=== PATIENT | female | born 1975 | race Caucasian/White ===

== ENCOUNTER 2016-08-24 16:12 | Emergency (ER) | payer MEDICAID ==
[~2016-08-24] VITALS: Ht 160 cm; Wt 82.0 kg
[~2016-08-24 16:12] MED LIST: DENIES MEDS
[2016-08-24 16:30] VITALS: Ht 160 cm; Wt 82.0 kg
[2016-08-24] MEDS ORDERED: AZIT250T94 PO (17:18)
[2016-08-24] MEDS ORDERED: PSEU120T51 PO (17:19)
[2016-08-24] MEDS ORDERED: D-ME473S18 PO (17:19)
[2016-08-24] MEDS ORDERED: TYL500 PO (17:19)
[2016-08-24] MEDS ORDERED: ALBU8.5H3 INH (17:19)
--- NOTE | 2016-08-24 17:25 | ERD ---
ER Documentation Chief Complaint Date/Time DATE: 08/24/16 TIME: 17:[address], congestion, CARLOS, cough X 4 days, pt has asthma. HPI This is a 40-year-old female presents to the ER stating she's had a cough for the last 3 days. Cough is dry, worse at night. She is also complaining of nasal congestion, headache, body pain. Her daughter sick with similar symptoms. Patient's past month history of asthma and has not had her inhaler because she ran out. She denies any chest pain or any shortness of breath at this time. ROS 12 point review of systems was done, all negative except per HPI. Medications Home Meds Active Scripts Pseudoephedrine Hcl (Sudafed 12 Hour) 120 Mg Tablet.sa, 120 MG PO BID for 3 Days Prov:JAYNE HAWKINS 08/24/16 Acetaminophen* (Tylenol*) 500 Mg Tab, 500 MG PO Q4H Y for MILD PAIN LEVEL 1-3 for 3 Days, TAB Prov:JAYNE HAWKINS 08/24/16 Dextromethorphan Hb-Promethazine Hcl (Promethazine DM Syrup) 473 Ml Syrup, 10 ML PO Q6H Y for COUGH, #4 OZ Prov:JAYNE HAWKINS 08/24/16 Albuterol Sulfate* (Proair HFA*) 8.5 Gm Hfa.aer.ad, 2 PUFF INH Q4, #1 INHALER Prov:JAYNE HAWKINS 08/24/16 Azithromycin* (Zithromax*) 250 Mg Tablet, 250 MG PO .ZPACK DIRECTED, #6 TAB TAKE 500 MG (2 TABS) THE FIRST DAY THEN 250 MG (1 TAB) DAYS 2-5 Prov:JAYNE HAWKINS 08/24/16 Reported Medications [Denies Meds] No Conflict Check 04/25/11 Allergies Allergies: Coded Allergies: No Known Drug Allergies (Verified Allergy, Mild, 04/18/13) PMhx/Soc History of Surgery: Yes () Anesthesia Reaction: No Hx Neurological Disorder: No Hx Respiratory Disorders: Yes (asthma) Hx Cardiac Disorders: No Hx Psychiatric Problems: No Hx Miscellaneous Medical Probl: No Hx Alcohol Use: No Hx Substance Use: No Hx Tobacco Use: No Physical Exam Vitals Vital Signs Date Time Temp Pulse Resp B/P Pulse Ox O2 Delivery O2 Flow Rate FiO2 08/24/16 16:30 99.5 103 18 137/92 98 Physical Exam GENERAL: The patient is well-developed, well-nourished, in no acute distress. NECK: Cervical spine is non tender with no step off. Supple, no nuchal rigidity HEENT: Atraumatic. Pupils equal, round and reactive to light. Extraocular muscles are grossly intact. Conjunctivae pink, no discharge. Bilateral tympanic membranes are clear with no evidence of erythema, effusion or dulling of the light reflex. Tonsilar erythema with no exudates or uvular deviation. Clear rhinorrhea. RESPIRATORY: Clear to auscultation bilaterally. There are no rales, wheezes or rhonchi. HEART: Regular rate and rhythm. No murmurs, clicks, rubs or gallops. EXTREMITIES: No clubbing or cyanosis. Full range of motion. Grossly neurovascularly intact. NEUROLOGIC: Alert and oriented. Cranial nerves II through XII are intact. SKIN: There is no rash. The skin is warm and dry. Procedures/MDM Differential diagnosis includes but is not limited to; Viral URI, allergic rhinitis, bronchitis, pertussis,pneumonia. Patient likely has a upper respiratory infection. Because patient has asthma she'll be treated with azithromycin. Patient will also be sent home with an albuterol inhaler and with Tylenol, icing, Sudafed for her other symptoms Clinical suspicion for pneumonia is low as patient appears well, is not hypoxic or in any respiratory distress. Additionally, patients physical examination is benign. Plan was discussed with patient they understand and agree. Patient needs to follow up with PCP in 1-2 days or return to ER sooner if symptoms worsen. Departure Diagnosis: Primary Impression: Upper respiratory infection Condition: Stable Patient Instructions: Preventing Common Respiratory Infections Additional Instructions: Llame al doctor MAANA y yvonne jennifer KEIRY PARA DENTRO DE 1-2 VELIZ.Dgale a la secretaria que nosotros le instruimos hacer esta keiry.Avise o llame si long condicin se empeora antes de la keiry. Regresa aqui si peor o no mejor. JAYNE HAWKINS Aug 24, 2016 17:25
== END 2016-08-24 17:22 | disposition home or self-care (01) ==
LOC: E/R 16:12
DX: J06.9 Acute upper respiratory infection, unspecified (principal); J45.909 Unspecified asthma, uncomplicated
CPT/HCPCS: 99284

== ENCOUNTER 2017-01-30 06:43 | Emergency (ER) | payer MEDICAID ==
[~2017-01-30] VITALS: Ht 157.5 cm; Wt 87.0 kg
[~2017-01-30 06:43] MED LIST changes: +ALBU8.5H3 INH; +AZIT250T94 PO; +D-ME473S18 PO; +PSEU120T51 PO; +TYL500 PO
[2017-01-30 06:47] VITALS: Ht 157.5 cm; Wt 87.0 kg
[2017-01-30 07:20] LABS: URINE BLOOD (Dip) POC Negative (NEGATIVE)
--- NOTE | 2017-01-30 07:23 | ERD ---
ER Documentation Chief Complaint Date/Time DATE: 01/30/17 TIME: 07:21 Chief Complaint Complains of headache x 4 days HPI 41-year-old female with no known prior history medical problems comes emergency department with a headache, dizziness that has been intermittent for 3-4 days. Patient states that she felt lightheaded, associated with a right temporal headache that has been on and off, moderate pain. She states that she has had this headache multiple times in the past however there is no associated dizziness with it. She has not tried anything for the pain so far. There is no history of trauma, loss of consciousness, blurry vision, paresthesias or weakness. ROS All systems reviewed and are negative except as per history of present illness. Medications Home Meds Active Scripts Ibuprofen* (Motrin*) 600 Mg Tab, 600 MG PO Q6, #30 TAB Prov:CHAVEZ JACOBO PA-C 01/30/17 Acetaminophen* (Tylophen*) 500 Mg Capsule, 1 CAP PO Q6H Y for PAIN AND OR ELEVATED TEMP, #20 CAP Prov:CHAVEZ JACOBO PA-C 01/30/17 Pseudoephedrine Hcl (Sudafed 12 Hour) 120 Mg Tablet.sa, 120 MG PO BID for 3 Days Prov:JAYNE HAWKINS 08/24/16 Acetaminophen* (Tylenol*) 500 Mg Tab, 500 MG PO Q4H Y for MILD PAIN LEVEL 1-3 for 3 Days, TAB Prov:JAYNE HAWKINS 08/24/16 Dextromethorphan Hb-Promethazine Hcl (Promethazine DM Syrup) 473 Ml Syrup, 10 ML PO Q6H Y for COUGH, #4 OZ Prov:JAYNE HAWKINS 08/24/16 Albuterol Sulfate* (Proair HFA*) 8.5 Gm Hfa.aer.ad, 2 PUFF INH Q4, #1 INHALER Prov:JAYNE HAWKINS 08/24/16 Azithromycin* (Zithromax*) 250 Mg Tablet, 250 MG PO .ZPACK DIRECTED, #6 TAB TAKE 500 MG (2 TABS) THE FIRST DAY THEN 250 MG (1 TAB) DAYS 2-5 Prov:JAYNE HAWKINS 08/24/16 Reported Medications [Denies Meds] No Conflict Check 04/25/11 Allergies Allergies: Coded Allergies: No Known Drug Allergies (Verified Allergy, Mild, 04/18/13) PMhx/Soc History of Surgery: Yes () Anesthesia Reaction: No Hx Neurological Disorder: No Hx Respiratory Disorders: Yes (asthma) Hx Cardiac Disorders: No Hx Psychiatric Problems: No Hx Miscellaneous Medical Probl: No Hx Alcohol Use: No Hx Substance Use: No Hx Tobacco Use: No Smoking Status: Never smoker Physical Exam Vitals Vital Signs Date Time Temp Pulse Resp B/P Pulse Ox O2 Delivery O2 Flow Rate FiO2 01/30/17 06:47 97.0 66 20 114/75 100 Physical Exam General: Well-developed, well-nourished. The patient appears in no acute distress. HEENT: Head is normocephalic, atraumatic. No scleral icterus. Pupils are equal , round, and reactive. Oral mucous membranes are moist. No pharyngeal erythema. Neck: Supple. Nontender. Lungs: Clear to auscultation. Normal air movement. Heart: Regular rate and rhythm. S1 and S2 are normal. No murmurs, gallops, or rubs. Abdomen: Soft, nontender, nondistended. Bowel sounds are normoactive. Extremities: No clubbing or cyanosis. Normal pulses. Moving extremities x 4. No weakness. Neurologic: Alert and oriented 3. No focal deficits. Cranial nerves II 12 grossly intact, speech and gait normal. Strength lower extremities 5 out of 5, strength upper extremities 5 out of 5. Skin: Normal turgor. No rash or lesions. Results 24 hrs Laboratory Tests Test 01/30/17 07:18 01/30/17 07:24 Bedside Glucose 114mg/dL Bedside Urine pH (LAB) 5.5 Bedside Urine Protein (LAB) Negative Bedside Urine Glucose (UA) Negative Bedside Urine Ketones (LAB) Negative Bedside Urine Blood Negative Bedside Urine Nitrite (LAB) Negative Bedside Urine Leukocyte Esterase (L Negative Current Medications Medications (Trade) Dose Ordered Sig/Hasmukh Route PRN Reason Start Time Stop Time Status Last Admin Dose Admin Acetaminophen (Tylenol Tab) 650 mg ONCE ONCE PO 01/30/17 07:30 01/30/17 07:31 DC 01/30/17 07:27 DIAGNOSTIC IMAGING REPORT Patient: SHAMAR MATTSON : 1975 Age: 41 Sex: F MR #: [id number] DOS: 01/30/17 0705 Ordering MD: CHAVEZ JACOBO PA-C Location: [facility] Room/Bed: PROCEDURE: CT Brain without contrast. CLINICAL INDICATION: Headache and dizziness for 2 days. TECHNIQUE: A CT of the brain without contrast was performed utilizing axial sections from the skull base through the vertex. The patient was scanned without intravenous contrast enhancement. Sagittal and coronal reformatted images were obtained using the data from the axial images. Total exam DLP is 630.20 mGy-cm. CTDIvol is 44.03 mGy. One or more of the following dose reduction techniques were used: Automated exposure control, adjustment of the mA and/or kV according to patient size, use of iterative reconstruction technique. COMPARISON: None available FINDINGS: There is normal valle-white matter differentiation. The ventricles and cisterns are normal. There is no intracranial hemorrhage or space-occupying lesion. There is no skull fracture or lytic lesion. IMPRESSION: 1. Normal noncontrast CT scan of the brain. 2. No intracranial hemorrhage. RPTAT: QQ .Jerry Schmid MD, MD Date Time Electronically viewed and signed by .Jerry Schmid MD, MD on 01/30/2017 07:49 .R/ CC: CHAVEZ JACOBO PA-C 12-lead EKG(interpreted by supervising physician): Dr. Sorto Rate/Rhythm: Normal Sinus Rhythm, rate of 59 QRS, ST, T-waves: No changes consistent w/ acute ischemia, no intervals, no dysrhythmias, no ectopy Impression: No evidence of ischemia or arrhythmia Procedures/MDM Medical decision making: This is a 49-year-old female who comes in with headache that is bitemporal associated with lightheadedness for the past 2 days. Patient states that this is not a headache, and it has been intermittent with dizziness. She had an EKG shows normal sinus rhythm, normal Accu-Chek and urine was negative for infection or . CT of the head was also performed, there is no evidence of acute intracranial process, there is no mass- effect, no midline shift or intracranial hemorrhage. Patient's neurologic examination is normal at this time, she was given Tylenol reports that she is feeling better at this time. I suspect this is a migraine versus tension headache, and headache symptoms appear to be benign. No accelerated headache, this is not the worst headache of her life, and headache waxes and wanes. There are no signs concerning for meningitis, encephalitis, subarachnoid hemorrhage, temporal arteritis, TIA, stroke. Departure Diagnosis: Primary Impression: Headache Condition: Good CHAVEZ JACOBO PA-C Jan 30, 2017 07:23
[2017-01-30] MEDS ORDERED: ACETAMINOPHEN 325 MG TAB PO ONE (07:30)
--- NOTE | 2017-01-30 07:49 | RADRPT ---
PROCEDURE: CT Brain without contrast. CLINICAL INDICATION: Headache and dizziness for 2 days. TECHNIQUE: A CT of the brain without contrast was performed utilizing axial sections from the skul l base through the vertex. The patient was scanned without intravenous contrast enhancement. Sagitta l and coronal reformatted images were obtained using the data from the axial images. Total exam DLP is 630.20 mGy-cm. CTDIvol is 44.03 mGy. One or more of the following dose reduction techniques we re used: Automated exposure control, adjustment of the mA and/or kV according to patient size, use o f iterative reconstruction technique. COMPARISON: None available FINDINGS: There is normal valle-white matter differentiation. The ventricles and cisterns are normal. There is no intracranial hemorrhage or space-occupying lesion. There is no skull fracture or lytic lesion. IMPRESSION: 1. Normal noncontrast CT scan of the brain. 2. No intracranial hemorrhage. RPTAT: QQ .Jerry Schmid MD, MD Date Time Electronically viewed and signed by .Jerry Schmid MD, on 01/30/2017 07:49 .R/
[2017-01-30] MEDS ORDERED: ACET500C5 PO (07:53)
[2017-01-30] MEDS ORDERED: IBUP-1542 PO (07:53)
== END 2017-01-30 08:03 | disposition home or self-care (01) ==
LOC: FTE 06:43
DX: R51 Headache (principal); J45.909 Unspecified asthma, uncomplicated; R42 Dizziness and giddiness
CPT/HCPCS: 70450; 81003; 82962; 93005; Z7502; Z7610

== ENCOUNTER 2017-03-20 17:43 | Emergency (ER) | payer MEDICAID ==
[~2017-03-20] VITALS: Ht 162.6 cm; Wt 86.0 kg
[~2017-03-20 17:43] MED LIST changes: +ACET500C5 PO; +IBUP-1542 PO
[2017-03-20 17:49] VITALS: Ht 162.6 cm; Wt 86.0 kg
--- NOTE | 2017-03-20 18:08 | ERA ---
ER Documentation Chief Complaint Date/Time DATE: 03/20/17 TIME: 18:08 Chief Complaint PT with AP, vomiting, diarrhea, X 4 days. HPI The patient is a 41-year-old female, presenting with vague diffuse abdominal discomfort, diarrhea, vomiting for a week. She denies fever, hematochezia, hematemesis, dysuria. He denies fever, chills, neck pain, chest pain, dyspnea. She does not smoke or drink Past medical history: None Past surgical history: ROS All systems reviewed and are negative except as per history of present illness. Medications Home Meds Active Scripts Loperamide Hcl* (Imodium*) 2 Mg Capsule, 2 MG PO .AFTER EA LOOSE BM Y for DIARRHEA, #10 TAB Prov:LUCI GALINDO MD 03/20/17 Ondansetron (Ondansetron Odt) 4 Mg Tab.rapdis, 4 MG PO Q6H Y for NAUSEA AND/OR VOMITING, #10 TAB Prov:LUCI GALINDO MD 03/20/17 Ibuprofen* (Motrin*) 600 Mg Tab, 600 MG PO Q6, #30 TAB Prov:LUCI GALINDO MD 03/20/17 Ibuprofen* (Motrin*) 600 Mg Tab, 600 MG PO Q6, #30 TAB Prov:CHAVEZ JACOBO PA-C 01/30/17 Acetaminophen* (Tylophen*) 500 Mg Capsule, 1 CAP PO Q6H Y for PAIN AND OR ELEVATED TEMP, #20 CAP Prov:CHAVEZ JACOBO PA-C 01/30/17 Pseudoephedrine Hcl (Sudafed 12 Hour) 120 Mg Tablet.sa, 120 MG PO BID for 3 Days Prov:JAYNE HAWKINS 08/24/16 Acetaminophen* (Tylenol*) 500 Mg Tab, 500 MG PO Q4H Y for MILD PAIN LEVEL 1-3 for 3 Days, TAB Prov:JAYNE HAWKINS 08/24/16 Dextromethorphan Hb-Promethazine Hcl (Promethazine DM Syrup) 473 Ml Syrup, 10 ML PO Q6H Y for COUGH, #4 OZ Prov:JAYNE HAWKINS 08/24/16 Albuterol Sulfate* (Proair HFA*) 8.5 Gm Hfa.aer.ad, 2 PUFF INH Q4, #1 INHALER Prov:JAYNE HAWKINS 08/24/16 Azithromycin* (Zithromax*) 250 Mg Tablet, 250 MG PO .ZPACK DIRECTED, #6 TAB TAKE 500 MG (2 TABS) THE FIRST DAY THEN 250 MG (1 TAB) DAYS 2-5 Prov:JAYNE HAWKINS 08/24/16 Reported Medications [Denies Meds] No Conflict Check 04/25/11 Allergies Allergies: Coded Allergies: No Known Drug Allergies (Verified Allergy, Mild, 03/20/17) PMhx/Soc History of Surgery: Yes () Anesthesia Reaction: No Hx Neurological Disorder: No Hx Respiratory Disorders: Yes (asthma) Hx Cardiac Disorders: No Hx Psychiatric Problems: No Hx Miscellaneous Medical Probl: No Hx Alcohol Use: No Hx Substance Use: No Hx Tobacco Use: No Physical Exam Vitals Vital Signs Date Time Temp Pulse Resp B/P Pulse Ox O2 Delivery O2 Flow Rate FiO2 03/20/17 20:32 98.3 66 16 112/68 99 Room Air 03/20/17 17:49 98.9 78 16 167/89 97 Physical Exam Const: No acute distress. Head: Atraumatic. Eyes: Normal Conjunctiva. ENT: Normal External Ears, Nose and Mouth. Neck: Full range of motion. No meningismus. Resp: Clear to auscultation bilaterally. Cardio: Regular rate and rhythm. Abd: Soft, non distended, normal bowel sounds, non tender. Skin: No petechiae or rashes. Back: No midline or flank tenderness. Ext: No cyanosis, or edema. Neur: Awake and alert. No focal deficit Psych: Normal Mood and Affect. Result Diagram: 03/20/17182403/20/17 182 Results 24 hrs Laboratory Tests Test 03/20/17 18:25 03/20/17 19:00 White Blood Count 8.810^3/ul Red Blood Count 4.1810^6/ul Hemoglobin 12.6g/dl Hematocrit 37.0% Mean Corpuscular Volume 88.5fl Mean Corpuscular Hemoglobin 30.1pg Mean Corpuscular Hemoglobin Concent 34.1g/dl Red Cell Distribution Width 12.7% Platelet Count 46842^3/UL Mean Platelet Volume 9.9fl Neutrophils % 56.9% Lymphocytes % 33.9% Monocytes % 4.7% Eosinophils % 3.8% Basophils % 0.5% Nucleated Red Blood Cells % 0.0/100WBC Neutrophils # (Manual) 5.010^3/ul Lymphocytes # 3.010^3/ul Monocytes # 0.410^3/ul Eosinophils # 0.310^3/ul Basophils # 0.010^3/ul Nucleated Red Blood Cells # 0.010^3/ul Sodium Level 139mmol/L Potassium Level 3.3mmol/L Chloride Level 106mmol/L Carbon Dioxide Level 25mmol/L Anion Gap 11 Blood Urea Nitrogen 11mg/dl Creatinine 0.69mg/dl Glucose Level 88mg/dl Calcium Level 8.6mg/dl Total Bilirubin 0.0mg/dl Direct Bilirubin 0.00mg/dl Indirect Bilirubin 0.0mg/dl Aspartate Amino Transf (AST/SGOT) 75IU/L Alanine Aminotransferase (ALT/SGPT) 156IU/L Alkaline Phosphatase 78IU/L Total Protein 7.4g/dl Albumin 4.2g/dl Globulin 3.20g/dl Albumin/Globulin Ratio 1.31 Lipase 58U/L Urine Color STRAW Urine Clarity CLEAR Urine pH 6.0 Urine Specific [place] 1.004 Urine Ketones NEGATIVEmg/dL Urine Nitrite NEGATIVEmg/dL Urine Bilirubin NEGATIVEmg/dL Urine Urobilinogen NEGATIVEmg/dL Urine Leukocyte Esterase NEGATIVELeu/ul Urine Microscopic RBC 0/HPF Urine Microscopic WBC 0/HPF Urine Hemoglobin 1+mg/dL Urine Glucose NEGATIVEmg/dL Urine Total Protein NEGATIVEmg/dl Current Medications Medications (Trade) Dose Ordered Sig/Hasmukh Route PRN Reason Start Time Stop Time Status Last Admin Dose Admin Acetaminophen/ Hydrocodone Bitart ([place] (10325)) 1 tab ONCE ONCE PO 03/20/17 18:30 03/20/17 18:31 DC Ondansetron HCl (Zofran Odt) 4 mg ONCE STAT ODT 03/20/17 18:19 03/20/17 18:20 DC 03/20/17 19:04 Potassium Chloride (Klor-Con 20) 20 meq ONCE STAT PO 03/20/17 20:20 03/20/17 20:22 DC 03/20/17 20:30 Procedures/[place] [id number] Radiology Main Line: [phone] DIAGNOSTIC IMAGING REPORT Patient: SHAMAR MATTSON : 1975 Age: 41 Sex: F MR #: [id number] DOS: 03/20/179 Ordering MD: LUCI GALINDO MD Location: [facility] Room/Bed: PROCEDURE: US Abdomen (right upper quadrant). CLINICAL INDICATION: Abdominal pain. TECHNIQUE: Multiple real-time longitudinal and transverse images of the right upper quadrant of the abdomen were acquired utilizing a curved array transducer. Images were reviewed on a high-resolution PACS workstation. COMPARISON: None FINDINGS: The liver is normal in size and echogenicity without focal mass or intrahepatic biliary dilatation. The gallbladder is normal. There is no pericholecystic fluid or gallbladder wall thickening or gallstones. The sonographic Warner sign is negative. No intra or extrahepatic biliary dilatation is seen. The common bile duct measures 3.7 mm in maximal dimension. The pancreas is not well visualized. No free fluid is identified. The right kidney measures 10.8 cm in length. There is normal echogenicity within the right kidney. There is no perinephric fluid collection. No hydronephrosis, mass, or calculus is seen. IMPRESSION: 1. The pancreas is not well visualized. 2. Otherwise unremarkable right upper quadrant ultrasound. RPTAT: QQ .Shelby Chaney MD, Date Time Electronically viewed and signed by .Shelby Chaney MD, MD on 03/20/2017 19: 38 .N/ CC: LUCI GALINDO MD MEDICAL MAKING DECISION: The patient is a 41-year-old female, presenting with acute vomiting diarrhea of unclear etiology, acute hypokalemia. She was treated with potassium chloride 20 mEq p.o. for acute hypokalemia, [place] 10 mg p.o. for pain, Zofran ODT for nausea with good response The differential diagnoses considered include but are not limited to cholelithiasis, cholecystitis, cystitis, pancreatitis, hepatitis, gastritis, peptic ulcer disease, gastric ulcer, appendicitis, diverticulitis, cholangitis, choledocholithiasis, partial small bowel obstruction. Departure Diagnosis: Primary Impression: Vomiting and diarrhea Additional Impressions: Abdominal pain Hypokalemia Transaminitis Condition: Good Comments I discussed the findings with the patient. I advised the patient to follow-up with the primary physician in about 1-2 days, sooner if needed and return if any concern. The patient's blood pressure was elevated (>120/80) but appears stable without evidence of hypertension emergency or urgency. The patient was counseled about the risks of hypertension and urged to pursue outpatient monitoring and therapy within a week with their primary care physician. She was discharged with Brian Pizano, Imodium LUCI GALINDO MD Mar 20, 2017 18:08
[2017-03-20] MEDS ORDERED: ONDANSETRON (ODT) 4 MG TAB ODT STA (18:19)
[2017-03-20] MEDS ORDERED: HYDROCODONE/APAP (10/325) TAB PO ONE (18:30)
--- NOTE | 2017-03-20 19:39 | RADRPT ---
PROCEDURE: US Abdomen (right upper quadrant). CLINICAL INDICATION: Abdominal pain. TECHNIQUE: Multiple real-time longitudinal and transverse images of the right upper quadrant of th e abdomen were acquired utilizing a curved array transducer. Images were reviewed on a high-resoluti on PACS workstation. COMPARISON: None FINDINGS: The liver is normal in size and echogenicity without focal mass or intrahepatic biliary dilatation. The gallbladder is normal. There is no pericholecystic fluid or gallbladder wall thickening or gal lstones. The sonographic Warner sign is negative. No intra or extrahepatic biliary dilatation is see n. The common bile duct measures 3.7 mm in maximal dimension. The pancreas is not well visualized. No free fluid is identified. The right kidney measures 10.8 cm in length. There is normal echogenicity within the right kidney. There is no perinephric fluid collection. No hydronephrosis, mass, or calculus is seen. IMPRESSION: 1. The pancreas is not well visualized. 2. Otherwise unremarkable right upper quadrant ultrasound. RPTAT: QQ .Shelby Chaney MD, MD Date Time Electronically viewed and signed by .Shelby Chaney MD, MD on 03/20/2017 19:38 .N/
[2017-03-20 19:51] LABS: BASOPHILS % 0.5 % (0.0-2.0); EOSINOPHILS # 0.3 10^3/ul (0.0-0.5); EOSINOPHILS % 3.8 % (0.0-7.0); HEMOGLOBIN 12.6 g/dl (12.0-16.0); LYMPHOCYTES % 33.9 % (15.0-51.0); MEAN CORPUSCULAR HEMOGLOBIN 30.1 pg (29.0-33.0); MEAN CORPUSCULAR HGB CONC 34.1 g/dl (32.0-37.0); MEAN CORPUSCULAR VOLUME 88.5 fl (82.0-101.0); MEAN PLATELET VOLUME 9.9 fl (7.4-10.4); MONOCYTE # 0.4 10^3/ul (0.3-0.9); MONOCYTES % 4.7 % (0.0-11.0); NEUTROPHILS % 56.9 % (39.0-77.0); PLATELET COUNT 246 10^3/UL (140-415); RED BLOOD COUNT 4.18 10^6/ul (4.20-5.40); RED CELL DISTRIBUTION WIDTH 12.7 % (11.5-14.5); WHITE BLOOD COUNT 8.8 10^3/ul (4.8-10.8)
[2017-03-20 19:54] LABS: ADD UMIC YES; UR ASCORBIC ACID NEGATIVE (NEGATIVE); UR BILIRUBIN (Dip) NEGATIVE (NEGATIVE); UR BLOOD (Dip) 1+ mg/dL (NEGATIVE); UR CLARITY CLEAR (CLEAR); UR COLOR STRAW (YELLOW); UR GLUCOSE (Dip) NEGATIVE (NEGATIVE); UR KETONES (Dip) NEGATIVE (NEGATIVE); UR LEUKOCYTE ESTERASE (Dip) NEGATIVE Leu/ul (NEGATIVE); UR NITRITE (Dip) NEGATIVE (NEGATIVE); UR RBC 0 /HPF (0-5); UR SPECIFIC GRAVITY (Dip) 1.004 (1.003-1.030); UR TOTAL PROTEIN (Dip) NEGATIVE (NEGATIVE); UR UROBILINOGEN (Dip) NEGATIVE (NEGATIVE)
[2017-03-20 20:10] LABS: ALBUMIN 4.2 g/dl (3.3-4.9); ALBUMIN/GLOBULIN RATIO 1.31; CALCIUM 8.6 mg/dl (8.4-10.2); CREATININE 0.69 mg/dl (0.44-1.00); POTASSIUM 3.3 mmol/L (3.5-5.1); TOTAL PROTEIN 7.4 g/dl (6.1-8.1)
[2017-03-20] MEDS ORDERED: POTASSIUM CHLORIDE (SR) 20 MEQ TAB PO STA (20:20)
[2017-03-20] MEDS ORDERED: IBUP-1542 PO (20:21)
[2017-03-20] MEDS ORDERED: LOPE2CAP PO (20:21)
[2017-03-20] MEDS ORDERED: ONDA4TAB14 PO (20:21)
[2017-03-20 20:32] VITALS: BP 112/68; PULSE 66; RESP 16; TEMP 98.3
== END 2017-03-20 20:35 | disposition home or self-care (01) ==
LOC: FTE 17:43
DX: R10.84 Generalized abdominal pain (principal); R11.10 Vomiting, unspecified; R19.7 Diarrhea, unspecified; E87.6 Hypokalemia; R74.0 Nonspecific elevation of levels of transaminase and lactic acid dehydrogenase [LDH]; J45.909 Unspecified asthma, uncomplicated
CPT/HCPCS: 36415; 76705; 80053; 81001; 83690; 85025; Z7502; Z7610

== ENCOUNTER 2017-07-16 12:52 | Emergency (ER) | payer MEDICAID, OTHER ==
[~2017-07-16] VITALS: Ht 157.5 cm; Wt 84.7 kg
[~2017-07-16 12:52] MED LIST changes: +LOPE2CAP PO; +ONDA4TAB14 PO
[2017-07-16 12:56] VITALS: Ht 157.5 cm; Wt 84.7 kg
[2017-07-16] MEDS ORDERED: ALBUTEROL 0.083% (NEB) 2.5 MG/3 ML AMP HHN STA (14:06)
[2017-07-16] MEDS ORDERED: IPRATROPIUM (NEB) 0.5 MG/2.5 ML AMP HHN ONE (14:30)
[2017-07-16] MEDS ORDERED: DEXAMETHASONE 10 MG/ML 1 ML INJ IM ONE (14:30)
--- NOTE | 2017-07-16 14:48 | RADRPT ---
PROCEDURE: XR Chest. CLINICAL INDICATION: Shortness of breath and cough. TECHNIQUE: Single frontal chest x-ray. COMPARISON: None. FINDINGS: The lungs are clear. No focal opacification is seen. The cardiomediastinal silhouette is unremarka ble. The osseous structures are unremarkable. IMPRESSION: 1. There is no acute cardiopulmonary process. RPTAT: PP .Kush Griffin MD, MD Date Time Electronically viewed and signed by .Kush Griffin MD, on 07/16/2017 14:48 .B/
[2017-07-16] MEDS ORDERED: MED4DP PO (15:04)
[2017-07-16] MEDS ORDERED: AZIT250T94 PO (15:04)
[2017-07-16] MEDS ORDERED: ALBU8.5H3 INH (15:05)
--- NOTE | 2017-07-16 15:51 | ERD ---
ER Documentation Chief Complaint Chief Complaint complains of a cough x 3 days HPI This is a 41-year-old female presents to the ER with a cough for the last 3 weeks. Patient states that over the last 2 days her cough is gotten worse patient has been experiencing wheezing and shortness of breath. She also developed fevers and sore throat. She does have a past medical history of asthma. She denies any chest pain. ROS 12 point review of systems was done, all negative except per HPI. Medications Home Meds Active Scripts Albuterol Sulfate* (Proair HFA*) 8.5 Gm Hfa.aer.ad, 2 PUFF INH Q4, #1 INHALER Prov:JAYNE HAWKINS 07/16/17 Methylprednisolone* (Medrol* DOSE PACK) 4 Mg/Dose-Pack Tab.ds.pk, 4 MG PO . DIRECTED for 6 Days, PACKET Prov:JAYNE HAWKINS 07/16/17 Azithromycin* (Zithromax*) 250 Mg Tablet, 250 MG PO .ZPACK DIRECTED, #6 TAB TAKE 500 MG (2 TABS) THE FIRST DAY THEN 250 MG (1 TAB) DAYS 2-5 Prov:JAYNE HAWKINS 07/16/17 Loperamide Hcl* (Imodium*) 2 Mg Capsule, 2 MG PO .AFTER EA LOOSE BM Y for DIARRHEA, #10 TAB Prov:LUCI GALINDO MD 03/20/17 Ondansetron (Ondansetron Odt) 4 Mg Tab.rapdis, 4 MG PO Q6H Y for NAUSEA AND/OR VOMITING, #10 TAB Prov:LUCI GALINDO MD 03/20/17 Ibuprofen* (Motrin*) 600 Mg Tab, 600 MG PO Q6, #30 TAB Prov:LUCI GALINDO MD 03/20/17 Ibuprofen* (Motrin*) 600 Mg Tab, 600 MG PO Q6, #30 TAB Prov:CHAVEZ JACOBO PA-C 01/30/17 Acetaminophen* (Tylophen*) 500 Mg Capsule, 1 CAP PO Q6H Y for PAIN AND OR ELEVATED TEMP, #20 CAP Prov:CHAVEZ JACOBO PA-C 01/30/17 Pseudoephedrine Hcl (Sudafed 12 Hour) 120 Mg Tablet.sa, 120 MG PO BID for 3 Days Prov:JAYNE HAWKINS 08/24/16 Acetaminophen* (Tylenol*) 500 Mg Tab, 500 MG PO Q4H Y for MILD PAIN LEVEL 1-3 for 3 Days, TAB Prov:JAYNE HAWKINS 08/24/16 Dextromethorphan Hb-Promethazine Hcl (Promethazine DM Syrup) 473 Ml Syrup, 10 ML PO Q6H Y for COUGH, #4 OZ Prov:JAYNE HAWKINS 08/24/16 Albuterol Sulfate* (Proair HFA*) 8.5 Gm Hfa.aer.ad, 2 PUFF INH Q4, #1 INHALER Prov:JAYNE HAWKINS 08/24/16 Azithromycin* (Zithromax*) 250 Mg Tablet, 250 MG PO .ZPACK DIRECTED, #6 TAB TAKE 500 MG (2 TABS) THE FIRST DAY THEN 250 MG (1 TAB) DAYS 2-5 Prov:JAYNE HAWKINS 08/24/16 Reported Medications [Denies Meds] No Conflict Check 04/25/11 Allergies Allergies: Coded Allergies: No Known Drug Allergies (Verified Allergy, Mild, 03/20/17) PMhx/Soc History of Surgery: Yes () Anesthesia Reaction: No Hx Neurological Disorder: No Hx Respiratory Disorders: Yes (asthma) Hx Cardiac Disorders: No Hx Psychiatric Problems: No Hx Miscellaneous Medical Probl: No Hx Alcohol Use: No Hx Substance Use: No Hx Tobacco Use: No Smoking Status: Never smoker Physical Exam Vitals Vital Signs Date Time Temp Pulse Resp B/P Pulse Ox O2 Delivery O2 Flow Rate FiO2 07/16/17 14:31 78 26 96 21 07/16/17 12:56 99.1 90 20 159/97 95 Physical Exam GENERAL: The patient is well-developed, well-nourished, in no acute distress. NECK: Cervical spine is non tender with no step off. Supple, no nuchal rigidity HEENT: Atraumatic. Pupils equal, round and reactive to light. Extraocular muscles are grossly intact. Conjunctivae pink, no discharge. Bilateral tympanic membranes are clear with no evidence of erythema, effusion or dulling of the light reflex. Tonsilar erythema with no exudates or uvular deviation. Clear rhinorrhea. RESPIRATORY: expiratory wheezes in all lung romo, no rales rhonchi or crackles HEART: Regular rate and rhythm. No murmurs, clicks, rubs or gallops. EXTREMITIES: No clubbing or cyanosis. Full range of motion. Grossly neurovascularly intact. NEUROLOGIC: Alert and oriented. Cranial nerves II through XII are intact. SKIN: There is no rash. The skin is warm and dry. Results 24 hrs Current Medications Medications (Trade) Dose Ordered Sig/Hasmukh Route PRN Reason Start Time Stop Time Status Last Admin Dose Admin Albuterol (Proventil 0.083% (Neb)) 5 mg ONCE STAT HHN 07/16/17 14:06 07/16/17 14:08 DC 07/16/17 14:30 Dexamethasone (Decadron) 10 mg ONCE ONCE IM 07/16/17 14:30 07/16/17 14:31 DC 07/16/17 14:35 Ipratropium [place] (Atrovent 0.02% (Neb)) 0.5 mg ONCE ONCE HHN 07/16/17 14:30 07/16/17 14:31 DC 07/16/17 14:30 [place] [id number] Radiology Main Line: [phone] DIAGNOSTIC IMAGING REPORT Patient: SHAMAR MATTSON : 1975 Age: 41 Sex: F MR #: [id number] DOS: 07/16/17 0000 Ordering MD: JAYNE HAWKINS. PAErinnC Location: [facility] Room/Bed: PROCEDURE: XR Chest. CLINICAL INDICATION: Shortness of breath and cough. TECHNIQUE: Single frontal chest x-ray. COMPARISON: None. FINDINGS: The lungs are clear. No focal opacification is seen. The cardiomediastinal silhouette is unremarkable. The osseous structures are unremarkable. IMPRESSION: 1. There is no acute cardiopulmonary process. RPTAT: PP .Kush Griffin MD, Date Time Electronically viewed and signed by .Kush Griffin MD, on 07/16/2017 14:48 .B/ CC: JAYNE HAWKINS Procedures/MDM Patient was given a nebulizing treatment in the ER and felt significantly better , her wheezing was improved upon recheck. Differential diagnosis includes but is not limited to; Viral URI, allergic rhinitis, bronchitis, pertussis,pneumonia.Patient will be treated for possible bacterial bronchitis. Clinical suspicion for pneumonia is low as patient appears well, is not hypoxic or in any respiratory distress. Additionally, patients physical examination is benign. Plan was discussed with patient they understand and agree. Patient needs to follow up with PCP in 1-2 days or return to ER sooner if symptoms worsen. Departure Diagnosis: Primary Impression: Bronchitis Condition: Stable Patient Instructions: Bronchitis With Wheezing (Adult) Additional Instructions: Call your primary care doctor TOMORROW for an appointment during the next 1-2 days.See the doctor sooner or return here if your condition worsens before your appointment time. JAYNE HAWKINS Jul 16, 2017 15:51
== END 2017-07-16 15:13 | disposition home or self-care (01) ==
LOC: FTE 12:52
DX: J20.9 Acute bronchitis, unspecified (principal); J45.909 Unspecified asthma, uncomplicated
CPT/HCPCS: 71010; 94664; 96372; J1100; Z7502; Z7610

== ENCOUNTER 2018-02-26 12:44 | Emergency (ER) | END 2018-02-26 17:44 | disposition home or self-care (01) ==

== ENCOUNTER 2018-05-07 12:46 | Emergency (ER) | END 2018-05-07 17:22 | disposition home or self-care (01) ==

== ENCOUNTER 2018-06-26 12:23 | Emergency (ER) | END 2018-06-26 14:51 | disposition home or self-care (01) ==

== ENCOUNTER 2018-08-11 17:53 | Emergency (ER) | payer OTHER ==
[~2018-08-11] VITALS: Ht 165.1 cm; Wt 84.5 kg
[~2018-08-11 17:53] MED LIST changes: -ALBU8.5H3 INH; +ALBU8.5H8 INH; +AZIT250T PO; -AZIT250T94 PO; +CETI10CA PO; +FLUT9.9S NASAL; +GUAI5SYR2 PO; +MED4DP PO; +PHEN-537 PO; +PSEU120T12 PO; -PSEU120T51 PO
[2018-08-11 18:02] VITALS: Ht 165.1 cm; Wt 84.5 kg
[2018-08-11] MEDS ORDERED: ALBUTEROL 0.083% (NEB) 2.5 MG/3 ML AMP NEB STA (20:15)
[2018-08-11] MEDS ORDERED: IPRATROPIUM (NEB) 0.5 MG/2.5 ML AMP NEB STA (20:15)
[2018-08-11] MEDS ORDERED: predniSONE 20 MG TAB PO STA (20:15)
[2018-08-11] MEDS ORDERED: D-ME118S24 PO (21:12)
[2018-08-11] MEDS ORDERED: ALBU18HF INHALATION (21:12)
[2018-08-11] MEDS ORDERED: IBUP-1542 PO (21:13)
--- NOTE | 2018-08-11 21:22 | ERD ---
ER Documentation Chief Complaint Chief Complaint cough/congestion, sob x 3 days HPI 42-year-old female presents for runny nose and cough times 3 days. She states that she has some chest congestion. Cough is noted to be productive of greenish phlegm. Also notes that she has been wheezing. She denies history of asthma. Has not tried any medications at home. No fevers or chills noted. No chest pain or shortness of breath. ROS All systems reviewed and are negative except as per history of present illness. Medications Home Meds Active Scripts Ibuprofen* (Motrin*) 600 Mg Tab, 600 MG PO Q6H PRN for PAIN AND OR ELEVATED TEMP, #30 TAB Prov:XIAOLUCI 08/11/18 Albuterol Sulfate* (Ventolin HFA*) 18 Gm Hfa.aer.ad, 2 PUFF INHALATION Q4H, #1 INHALER Prov:LUCI XIAO 08/11/18 D-Methorphan Hb/P-Epd HCl/Bpm (Qdvyipqjiu-Fgvhjjgqitz-Py Syr) 118 Ml Syrup, 5 ML PO Q4H PRN for COUGH, #1 BOTTLE Prov:LUCI XIAO 08/11/18 Guaifenesin-Dextromethorphan* (Robitussin* DM) 100MG/10MG/5ML Syrup, 10 ML PO Q6H PRN for COUGH for 5 Days, ML Prov:SKIP ARTEAGA PA-C 06/26/18 Fluticasone Propionate (Flonase Allergy Relief) 9.9 Ml [place].susp, 2 SPRAY NASAL DAILY, #1 BOTTLE TO EACH NOSTRIL Prov:SKIP ARTEAGA PA-C 06/26/18 Cetirizine Hcl* (Zyrtec*) 10 Mg Capsule, 10 MG PO DAILY, #12 TAB.CHEW Prov:SKIP ARTEAGA PA-C 06/26/18 Acetaminophen* (Tylophen*) 500 Mg Capsule, 1 CAP PO Q6H PRN for PAIN AND OR ELEVATED TEMP, #20 CAP Prov:SKIP ARTEAGA PA-C 06/26/18 Ibuprofen* (Motrin*) 600 Mg Tab, 600 MG PO Q6, #30 TAB Prov:SKIP ARTEAGA PA-C 06/26/18 Phenazopyridine Hcl* (Pyridium*) 100 Mg Tab, 100 MG PO TID PRN for URINARY PAIN, #8 TAB Prov:CONY NICHOLS PA-C 05/07/18 Ibuprofen* (Motrin*) 600 Mg Tab, 600 MG PO Q6, #30 TAB Prov:CONY NICHOLS PA-C 02/26/18 Ondansetron (Ondansetron Odt) 4 Mg Tab.rapdis, 4 MG PO Q6H PRN for NAUSEA AND/OR VOMITING, #10 TAB Prov:CONY NICHOLS PA-C 02/26/18 Albuterol Sulfate* (Proair HFA*) 8.5 Gm Hfa.aer.ad, 2 PUFF INH Q4, #1 INHALER Prov:JAYNE HAWKINS 07/16/17 Methylprednisolone* (Medrol* DOSE PACK) 4 Mg/Dose-Pack Tab.ds.pk, 4 MG PO . DIRECTED for 6 Days, PACKET Prov:JAYNE HAWKINS 07/16/17 Azithromycin* (Zithromax*) 250 Mg Tablet, 250 MG PO .ZPACK DIRECTED, #6 TAB TAKE 500 MG (2 TABS) THE FIRST DAY THEN 250 MG (1 TAB) DAYS 2-5 Prov:JAYNE HAWKINS 07/16/17 Loperamide Hcl* (Imodium*) 2 Mg Capsule, 2 MG PO .AFTER EA LOOSE BM PRN for DIARRHEA, #10 TAB Prov:LUCI GALINDO MD 03/20/17 Ondansetron (Ondansetron Odt) 4 Mg Tab.rapdis, 4 MG PO Q6H PRN for NAUSEA AND/OR VOMITING, #10 TAB Prov:LUCI GALINDO MD 03/20/17 Ibuprofen* (Motrin*) 600 Mg Tab, 600 MG PO Q6, #30 TAB Prov:LUCI GALINDO MD 03/20/17 Ibuprofen* (Motrin*) 600 Mg Tab, 600 MG PO Q6, #30 TAB Prov:CHAVEZ JACOBO PA-C 01/30/17 Acetaminophen* (Tylophen*) 500 Mg Capsule, 1 CAP PO Q6H PRN for PAIN AND OR ELEVATED TEMP, #20 CAP Prov:CHAVEZ JACOBO PA-C 01/30/17 Pseudoephedrine Hcl (Sudafed 12 Hour) 120 Mg Tablet.sa, 120 MG PO BID for 3 Days Prov:JAYNE HAWKINS 08/24/16 Acetaminophen* (Tylenol*) 500 Mg Tab, 500 MG PO Q4H PRN for MILD PAIN LEVEL 1-3 for 3 Days, TAB Prov:JAYNE HAWKINS 08/24/16 Dextromethorphan Hb-Promethazine Hcl (Promethazine DM Syrup) 473 Ml Syrup, 10 ML PO Q6H PRN for COUGH, #4 OZ Prov:JAYNE HAWKINS 08/24/16 Albuterol Sulfate* (Proair HFA*) 8.5 Gm Hfa.aer.ad, 2 PUFF INH Q4, #1 INHALER Prov:JAYNE HAWKINS 08/24/16 Azithromycin* (Zithromax*) 250 Mg Tablet, 250 MG PO .ZPACK DIRECTED, #6 TAB TAKE 500 MG (2 TABS) THE FIRST DAY THEN 250 MG (1 TAB) DAYS 2-5 Prov:JAYNE HAWKINS 08/24/16 Reported Medications [Denies Meds] No Conflict Check 04/25/11 Allergies Allergies: Coded Allergies: No Known Drug Allergies (Verified Allergy, Mild, 05/07/18) PMhx/Soc History of Surgery: Yes () Anesthesia Reaction: No Hx Neurological Disorder: No Hx Respiratory Disorders: Yes (asthma) Hx Cardiac Disorders: No Hx Psychiatric Problems: No Hx Miscellaneous Medical Probl: No Hx Alcohol Use: No Hx Substance Use: No Hx Tobacco Use: No Smoking Status: Never smoker Physical Exam Vitals Vital Signs Date Temp Pulse Resp B/P (MAP) Pulse Ox O2 O2 Flow FiO2 Time Delivery Rate 08/11/18 60 18 98 21 20:35 08/11/18 98.1 74 18 132/85 100 18:02 (101) Physical Exam Const: No acute distress Head: Atraumatic Eyes: Normal Conjunctiva ENT: Normal External Ears, nasal congestion noted . No tonsillar exudate or swelling noted Neck: Full range of motion. No meningismus. Resp: Clear to auscultation bilaterally, mild wheezing diffusely Cardio: Regular rate and rhythm, no murmurs Skin: No petechiae or rashes Ext: No cyanosis, or edema Neur: Awake and alert Psych: Normal Mood and Affect Results 24 hrs Current Medications Medications Dose Sig/Hasmukh Start Time Status Last (Trade) Ordered Route PRN Stop Time Admin Dose Reason Admin Albuterol 2.5 mg ONCE STAT 08/11/18 DC 08/11/18 (Proventil NEB 20:15 08/11/18 20:34 0.083% (Neb)) 20:16 Ipratropium 0.5 mg ONCE STAT 08/11/18 DC 08/11/18 [place] NEB 20:15 08/11/18 20:34 (Atrovent 20:16 0.02% (Neb)) Prednisone 40 mg ONCE STAT 08/11/18 DC 08/11/18 (Prednisone) PO 20:15 08/11/18 20:24 20:16 Procedures/MDM Medical Decision Making: Differential diagnosis includes but not limited to upper respiratory infection, pneumonia, sepsis, bronchitis. Patient appeared well on physical examination, nontoxic appearing. There is low suspicion for pneumonia, sepsis. Patient did have some mild diffuse wheezing on physical examination. She likely has a bronchitis. Discussed symptomatic treatment with patient's mother who agrees with plan. Patient given a breathing treatment in the ER with relief of the wheezing. Patient given prescription for Bromfed and albuterol inhaler and Motrin. Patient advised to follow up with PCP in 1-2 days. Patient advised to return to ED for new or worsening symptoms. Patient stable on discharge from the ED. Disclaimer: Inadvertent spelling and grammatical errors are likely due to EHR/dictation software use and do not reflect on the overall quality of patient care. Also, please note that the electronic time recorded on this note does not necessarily reflect the actual time of the patient encounter. Departure Diagnosis: Primary Impression: Bronchitis Condition: Fair Patient Instructions: Bronchitis With Wheezing (Adult) Referrals: [facility] YOU HAVE RECEIVED A MEDICAL SCREENING EXAM AND THE RESULTS INDICATE THAT YOU DO NOT HAVE A CONDITION THAT REQUIRES URGENT TREATMENT IN THE EMERGENCY DEPARTMENT. FURTHER EVALUATION AND TREATMENT OF YOUR CONDITION CAN WAIT UNTIL YOU ARE SEEN I N YOUR DOCTORS OFFICE WITHIN THE NEXT 1-2 DAYS. IT IS YOUR RESPONSIBILITY TO MAKE AN APPOINTMENT FOR FOLOW-UP CARE. IF YOU HAVE A PRIMARY DOCTOR --you should call your primary doctor and schedule an appointment IF YOU DO NOT HAVE A PRIMARY DOCTOR YOU CAN CALL OUR PHYSICIAN REFERRAL HOTLINE AT IF YOU CAN NOT AFFORD TO SEE A PHYSICIAN YOU CAN CHOSE FROM THE FOLLOWING [facility] [address] [facility] [address] [facility] [address] [facility] [address] [facility]. [facility] [address] [facility]. [facility] [address] Additional Instructions: Llame al doctor MAANA y yvonne jennifer KEIRY PARA DENTRO DE 1-2 VELIZ.Dgale a la secretaria que nosotros le instruimos hacer esta keiry.Avise o llame si long condicin se empeora antes de la keiry. Regresa aqui si peor o no mejor. LUCI XIAO DO Aug 11, 2018 21:22
[2018-08-11 21:25] VITALS: BP 138/85; PULSE 77; RESP 18
== END 2018-08-11 21:26 | disposition home or self-care (01) ==
LOC: FTE 17:53
DX: J40 Bronchitis, not specified as acute or chronic (principal)
CPT/HCPCS: 94664; J7512; Z7502; Z7610

== ENCOUNTER 2019-03-15 23:24 | Emergency (ER) | payer OTHER ==
[~2019-03-15] VITALS: Ht 162.6 cm; Wt 84.4 kg
[~2019-03-15 23:24] MED LIST changes: +ALBU18HF INHALATION; +CYCL10TA7 PO; +D-ME118S24 PO
[2019-03-15 23:34] VITALS: Ht 162.6 cm; Wt 84.4 kg
[2019-03-16] MEDS ORDERED: KETOROLAC 30 MG INJ IM STA (00:56)
[2019-03-16] MEDS ORDERED: CYCLOBENZAPRINE 10 MG TAB PO ONE (01:00)
[2019-03-16 02:21] VITALS: BP 136/103; PULSE 68; RESP 18
--- NOTE | 2019-03-16 03:46 | ERD ---
ER Documentation Chief Complaint Chief Complaint Back pain x 2 months HPI This is a 43-year-old female who presents to the ED complaining of upper back pain intermittently over the past 2 months. 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 She denies any recent fall or trauma. She states her upper back pain radiates towards her bilateral shoulders. No bilateral upper extremity numbness or tingling. No neck stiffness. She has been taking ibuprofen with intermittent relief. ROS All systems reviewed and are negative except as per history of present illness. Medications Home Meds Active Scripts Ibuprofen* (Motrin*) 600 Mg Tab, 600 MG PO Q6H PRN for PAIN AND OR ELEVATED TEMP, #30 TAB Prov:JERIGRHARLANANLISSY-C 03/16/19 Cyclobenzaprine Hcl* (Cyclobenzaprine Hcl*) 10 Mg Tablet, 10 MG PO TID, #15 TAB Prov:LISSY SANDOVAL-C 03/16/19 Ibuprofen* (Motrin*) 600 Mg Tab, 600 MG PO Q6H PRN for PAIN AND OR ELEVATED TEMP, #30 TAB Prov:LUCI XIAO DO 08/11/18 Albuterol Sulfate* (Ventolin HFA*) 18 Gm Hfa.aer.ad, 2 PUFF INHALATION Q4H, #1 INHALER Prov:LUCI XIAO DO 08/11/18 D-Methorphan Hb/P-Epd HCl/Bpm (Hhelsqjcxg-Ftmusmlpmjt-Mc Syr) 118 Ml Syrup, 5 ML PO Q4H PRN for COUGH, #1 BOTTLE Prov:LUCI XIAO DO 08/11/18 Guaifenesin-Dextromethorphan* (Robitussin* DM) 100MG/10MG/5ML Syrup, 10 ML PO Q6H PRN for COUGH for 5 Days, ML Prov:SKIP ARTEAGA PA-C 06/26/18 Fluticasone Propionate (Flonase Allergy Relief) 9.9 Ml [place].susp, 2 SPRAY NASAL DAILY, #1 BOTTLE TO EACH NOSTRIL Prov:SKIP ARTEAGA PA-C 06/26/18 Cetirizine Hcl* (Zyrtec*) 10 Mg Capsule, 10 MG PO DAILY, #12 TAB.CHEW Prov:SKIP ARTEAGAC 06/26/18 Acetaminophen* (Tylophen*) 500 Mg Capsule, 1 CAP PO Q6H PRN for PAIN AND OR ELEVATED TEMP, #20 CAP Prov:SKIP ARTEAGAC 06/26/18 Ibuprofen* (Motrin*) 600 Mg Tab, 600 MG PO Q6, #30 TAB Prov:SKIP ARTEAGAC 06/26/18 Phenazopyridine Hcl* (Pyridium*) 100 Mg Tab, 100 MG PO TID PRN for URINARY PAIN, #8 TAB Prov:CONY NICHOLS PA-C 05/07/18 Ibuprofen* (Motrin*) 600 Mg Tab, 600 MG PO Q6, #30 TAB Prov:CONY NICHOLS PA-C 02/26/18 Ondansetron (Ondansetron Odt) 4 Mg Tab.rapdis, 4 MG PO Q6H PRN for NAUSEA AND/OR VOMITING, #10 TAB Prov:CONY NICHOLS PA-C 02/26/18 Albuterol Sulfate* (Proair HFA*) 8.5 Gm Hfa.aer.ad, 2 PUFF INH Q4, #1 INHALER Prov:JAYNE HAWKINS 07/16/17 Methylprednisolone* (Medrol* DOSE PACK) 4 Mg/Dose-Pack Tab.ds.pk, 4 MG PO . DIRECTED for 6 Days, PACKET Prov:JAYNE HAWKINS 07/16/17 Azithromycin* (Zithromax*) 250 Mg Tablet, 250 MG PO .ZPACK DIRECTED, #6 TAB TAKE 500 MG (2 TABS) THE FIRST DAY THEN 250 MG (1 TAB) DAYS 2-5 Prov:JAYNE HAWKINS 07/16/17 Loperamide Hcl* (Imodium*) 2 Mg Capsule, 2 MG PO .AFTER EA LOOSE BM PRN for DIARRHEA, #10 TAB Prov:LUCI GALINDO MD 03/20/17 Ondansetron (Ondansetron Odt) 4 Mg Tab.rapdis, 4 MG PO Q6H PRN for NAUSEA AND/OR VOMITING, #10 TAB Prov:LUCI GALINDO MD 03/20/17 Ibuprofen* (Motrin*) 600 Mg Tab, 600 MG PO Q6, #30 TAB Prov:LUCI GALINDO MD 03/20/17 Ibuprofen* (Motrin*) 600 Mg Tab, 600 MG PO Q6, #30 TAB Prov:CHAVEZ JACOBO PA-C 01/30/17 Acetaminophen* (Tylophen*) 500 Mg Capsule, 1 CAP PO Q6H PRN for PAIN AND OR ELEVATED TEMP, #20 CAP Prov:CHAVEZ JACOBO PA-C 01/30/17 Pseudoephedrine Hcl (Sudafed 12 Hour) 120 Mg Tablet.sa, 120 MG PO BID for 3 Days Prov:JAYNE HAWKINS 08/24/16 Acetaminophen* (Tylenol*) 500 Mg Tab, 500 MG PO Q4H PRN for MILD PAIN LEVEL 1-3 for 3 Days, TAB Prov:JAYNE HAWKINS 08/24/16 Dextromethorphan Hb-Promethazine Hcl (Promethazine DM Syrup) 473 Ml Syrup, 10 ML PO Q6H PRN for COUGH, #4 OZ Prov:JAYNE HAWKINS 08/24/16 Albuterol Sulfate* (Proair HFA*) 8.5 Gm Hfa.aer.ad, 2 PUFF INH Q4, #1 INHALER Prov:JAYNE HAWKINS 08/24/16 Azithromycin* (Zithromax*) 250 Mg Tablet, 250 MG PO .ZPACK DIRECTED, #6 TAB TAKE 500 MG (2 TABS) THE FIRST DAY THEN 250 MG (1 TAB) DAYS 2-5 Prov:JAYNE HAWKINS 08/24/16 Reported Medications [Denies Meds] No Conflict Check 04/25/11 Allergies Allergies: Coded Allergies: No Known Drug Allergies (Verified Allergy, Mild, 05/07/18) PMhx/Soc Medical and Surgical Hx: pt denies Medical Hx, pt denies Surgical Hx History of Surgery: No Anesthesia Reaction: No Hx Neurological Disorder: No Hx Respiratory Disorders: No Hx Cardiac Disorders: No Hx Psychiatric Problems: No Hx Miscellaneous Medical Probl: No Hx Alcohol Use: No Hx Substance Use: No Hx Tobacco Use: No Smoking Status: Never smoker Physical Exam Vitals Vital Signs Date Temp Pulse Resp B/P (MAP) Pulse Ox O2 O2 Flow FiO2 Time Delivery Rate 03/16/19 97.8 68 18 136/103 98 02:21 (114) 03/15/19 98.5 82 17 158/91 97 23:34 (113) Physical Exam Const: No acute distress Head: Atraumatic Eyes: Normal Conjunctiva ENT: Normal External Ears, Nose and Mouth. Neck: Full range of motion. No meningismus. + Bilateral parathoracic spinal tenderness palpation. Resp: Clear to auscultation bilaterally Cardio: Regular rate and rhythm, no murmurs Abd: Soft, non tender, non distended. Normal bowel sounds Skin: No petechiae or rashes Back: No midline or flank tenderness Ext: No cyanosis, or edema. Bilateral upper extremity strength 5 out of 5, radial/ulnar/medial nerves intact. Neur: Awake and alert Psych: Normal Mood and Affect Results 24 hrs Current Medications Medications Dose Sig/Hasmukh Start Time Status Last (Trade) Ordered Route PRN Stop Time Admin Dose Reason Admin Ketorolac 30 mg ONCE STAT 03/16/19 DC 03/16/19 Tromethamine IM 00:56 01:20 (Toradol) 03/16/19 00:58 10 mg ONCE ONCE 03/16/19 DC Cyclobenzapri PO 01:00 ne HCl 03/16/19 01:01 (Flexeril) Procedures/MDM ED COURSE: The patient was given IM Toradol The medication was well tolerated and the patient had market improvement in symptoms. The patient remained stable throughout ED course. MEDICAL DECISION MAKIN-year-old patient presents today with atraumatic upper back pain. There are no focal neurological deficits on physical exam. Advanced imaging was deferred as symptoms are likely musculoskeletal in origin. I have low suspicion for epidural abscess, cauda equina, cord compression, spinal tumor/mass or compression fracture. Patient will be treated conservatively with appropiate pain control. Follow up with PCP in 1 week, otherwise return to the ED for any new or worsening symptoms. PRESCRIPTIONS: Ibuprofen, Flexeril SPECIALIST FOLLOW UP RECOMMENDED: None Departure Diagnosis: Primary Impression: Back pain Back pain location: back pain in unspecified location Chronicity: unspecified Back pain laterality: unspecified Qualified Codes: M54.9 - Dorsalgia, unspecified Condition: Stable Patient Instructions: Back Pain (Acute Or Chronic) Additional Instructions: Paciente aconseja volver a Departamento de urgencias inmediatamente para sntomas nuevos o que empeoran . Paciente aconseja posteriores con el PCP en 1-2 [place]. Si el paciente no tiene ninguna de atencin primaria pueden seguir con [facility] [address] [place] [address] o [facility] + [address] [address] LISSY SANDOVAL PA-C Mar 16, 2019 03:46
== END 2019-03-16 02:22 | disposition home or self-care (01) ==
LOC: FTE 23:24
DX: M54.6 Pain in thoracic spine (principal)
CPT/HCPCS: 96372; J1885; Z7502; Z7610

== ENCOUNTER 2019-06-03 22:04 | Inpatient (IN) | payer OTHER ==
[~2019-06-03] VITALS: Ht 160 cm; Wt 83.1 kg
[~2019-06-03 22:04] MED LIST changes: +DOCU-159 PO; +HYDR-3601 PO
[2019-06-03 22:08] VITALS: Ht 160 cm; Wt 83.1 kg
[2019-06-04] VITALS (24 sets, daily range): BP systolic 122–150; BP diastolic 79–100; PULSE 56–78; RESP 12–18
[2019-06-04] MEDS ORDERED: ONDANSETRON 4 MG INJ IV STA (03:26)
[2019-06-04] MEDS ORDERED: LACTATED RINGER'S 1,000 ML IV STA (03:26)
[2019-06-04] MEDS ORDERED: KETOROLAC 15 MG INJ IV STA (03:26)
[2019-06-04] MEDS ORDERED: HYDROmorphONE 0.5 MG/0.5 ML SYG IV STA (04:14)
[2019-06-04] MEDS ORDERED: PIPER-TAZO 3.375 GM IV (PMX) 100 ML IVPB ONE (04:30)
[2019-06-04] MEDS ORDERED: DEXTROSE 5%-0.45% NACL 1,000 ML IV SCH ×2 (08:13→16:00)
[2019-06-04] MEDS ORDERED: morphine 2 MG INJ IV PRN ×3 (08:30→17:00)
[2019-06-04] MEDS ORDERED: NACL 0.9% 3 ML SYG IV SCH (08:30)
[2019-06-04] MEDS ORDERED: ACETAMINOPHEN 650 MG SUPP PR PRN (08:30)
[2019-06-04] MEDS ORDERED: ONDANSETRON 4 MG INJ IV PRN ×3 (08:30→17:00)
[2019-06-04] MEDS ORDERED: ACETAMINOPHEN 325 MG TAB PO PRN ×2 (08:30→17:00)
[2019-06-04] MEDS ORDERED: MAGNESIUM HYDROXIDE 30ML CUP PO PRN (08:30)
[2019-06-04] MEDS ORDERED: DOCUSATE SODIUM 100 MG CAP PO PRN (08:30)
[2019-06-04] MEDS ORDERED: PIPER-TAZO 3.375 GM IV (PMX) 100 ML IVPB SCH (12:00)
[2019-06-04] MEDS ORDERED: SEVOFLURANE 15 MIN ONE (15:40)
[2019-06-04] MEDS ORDERED: LIDOCAINE 2% (SDV) 5 ML INJ ONE (15:42)
[2019-06-04] MEDS ORDERED: ROCURONIUM 50 MG INJ ONE (15:42)
[2019-06-04] MEDS ORDERED: SUCCINYLCHOLINE CHLORIDE 100 MG/5 ML SYG IV ONE (15:42)
[2019-06-04] MEDS ORDERED: PROPOFOL 20 ML ONE (15:42)
[2019-06-04] MEDS ORDERED: NEOSTIGMINE 3 MG/3 ML SYRINGE ONE ×2 (15:42→16:35)
[2019-06-04] MEDS ORDERED: GLYCOPYRROLATE 0.4 MG INJ ONE ×2 (15:42→16:35)
[2019-06-04] MEDS ORDERED: MEPERIDINE 100 MG INJ ONE (15:43)
[2019-06-04] MEDS ORDERED: BUPIVACAINE 0.5%/EPI (SDV) 30 ML INJ ONE (15:43)
[2019-06-04] MEDS ORDERED: HYDROCODONE/APAP (5/325) TAB PO PRN ×2 (16:00→17:00)
[2019-06-04] MEDS ORDERED: IBUPROFEN 400 MG TAB PO PRN (16:00)
[2019-06-04] MEDS ORDERED: MEPERIDINE 25 MG INJ IV PRN (16:30)
[2019-06-04] MEDS ORDERED: MIDAZOLAM 1 MG/ML 2 ML INJ IV PRN (16:30)
[2019-06-04] MEDS ORDERED: HYDROmorphONE 1 MG/5 ML IV SYRINGE IV PRN ×3 (16:30)
[2019-06-04] MEDS ORDERED: hydrALAzine 20 MG INJ IV PRN (16:30)
[2019-06-04] MEDS ORDERED: LABETALOL HCL 20MG INJ IV PRN (16:30)
[2019-06-04] MEDS ORDERED: DIPHENHYDRAMINE 50 MG INJ IV PRN (16:30)
[2019-06-04] MEDS ORDERED: FENTAnyl 50 MCG/ML VIAL IV PRN ×2 (16:30)
[2019-06-04] MEDS ORDERED: EPHEDrine 25 MG/5 ML SYG IV PRN (16:30)
[2019-06-04] MEDS ORDERED: METOCLOPRAMIDE 10 MG INJ IV PRN ×2 (16:30→17:00)
[2019-06-04] MEDS ORDERED: ONDANSETRON 4 MG INJ ONE (16:35)
[2019-06-04] MEDS ORDERED: METOCLOPRAMIDE 10 MG INJ ONE (16:35)
[2019-06-04] MEDS ORDERED: IBUPROFEN 600 MG TAB PO PRN (17:00)
[2019-06-04] MEDS ORDERED: FENTAnyl 50 MCG/ML VIAL ONE (17:17)
[2019-06-04] MEDS: FENTAnyl 50 MCG/ML VIAL IV PRN ×2 (17:40→17:48)
[2019-06-04] MEDS: PIPER-TAZO 3.375 GM IV (PMX) 100 ML IVPB SCH (17:59)
[2019-06-04] MEDS: D5-NS + KCL 20 MEQ 1,000 ML IV SCH (19:02)
[2019-06-04] MEDS: HYDROmorphONE 0.5 MG/0.5 ML SYG IV PRN (19:07)
[2019-06-05 00:12] VITALS: BP 123/78; PULSE 81; RESP 16
[2019-06-05] MEDS: KETOROLAC 30 MG INJ IV PRN ×3 (00:27→18:41)
[2019-06-05] MEDS: PIPER-TAZO 3.375 GM IV (PMX) 100 ML IVPB SCH ×3 (00:27→13:13)
[2019-06-05 04:00] VITALS: BP 126/81; PULSE 79; RESP 16
[2019-06-05] MEDS: PANTOPRAZOLE 40 MG INJ IV SCH (05:24)
[2019-06-05] MEDS: D5-NS + KCL 20 MEQ 1,000 ML IV SCH ×2 (05:24→12:56)
[2019-06-05 07:53] VITALS: BP 123/81; PULSE 71; RESP 18
[2019-06-05] MEDS: HYDROmorphONE 0.5 MG/0.5 ML SYG IV PRN (13:17)
[2019-06-05 15:24] VITALS: BP 129/87; PULSE 74; RESP 18
[2019-06-05 20:00] VITALS: BP 144/92; PULSE 76; RESP 18
[2019-06-06] MEDS: KETOROLAC 30 MG INJ IV PRN ×2 (00:50→12:26)
[2019-06-06 02:00] VITALS: BP 126/82
[2019-06-06] MEDS: PANTOPRAZOLE 40 MG INJ IV SCH (05:49)
[2019-06-06 07:28] VITALS: BP 132/90; PULSE 78; RESP 18
[2019-06-06] MEDS ORDERED: FLU VACC QS 2019-20 (6MOS UP) 0.5 ML SYG IM* ONE (10:00)
[2019-06-06 15:54] VITALS: BP 128/86; PULSE 73; RESP 18
== END 2019-06-06 20:30 | disposition home or self-care (01) | DRG 343 ==
LOC: E/R 22:04 → MS1 06-04 04:26
PROVIDERS: ADMIT Internal Medicine Nephrology; ATTEND Internal Medicine Nephrology
PROC: 0DTJ4ZZ Resection of Appendix, Percutaneous Endoscopic Approach (ICD-10-PCS; principal; 2019-06-04 15:00)
DX: K35.80 Unspecified acute appendicitis (principal); I10 Essential (primary) hypertension; J45.909 Unspecified asthma, uncomplicated; E66.9 Obesity, unspecified; Z68.32 Body mass index [BMI] 32.0-32.9, adult
CPT/HCPCS: 36415; 74176; 80053; 81003; 81025; 83690; 85025; 85610; 85730; 87086; 88304; 90686; 96374; 96375; C9113; J1170; J1885; J2175; J2270; J2405; J2543; J2710; J2765; J3010; J3480; J7042; J7120